=== PATIENT | female | born 1955 | race Caucasian/White ===

== ENCOUNTER → 2017-08-16 | Outpatient (CLI) | payer OTHER | END | disposition home or self-care (01) | LOC: CFH 15:14 → EDSTATUS 15:30 | PROVIDERS: ATTEND Specialist | DX: Z12.31 Encounter for screening mammogram for malignant neoplasm of breast (principal) | CPT/HCPCS: 77063; 77067 ==

== ENCOUNTER 2018-02-09 04:08 | Emergency (ER) | payer OTHER ==
[~2018-02-09] VITALS: Ht 172.7 cm; Wt 95.0 kg
[2018-02-09 06:05] VITALS: BP 158/76
[2018-02-09] MEDS ORDERED: LIDOCAINE-MPF 2% ,5ML ONE (06:13)
[2018-02-09] MEDS ORDERED: LIDOCAINE 2%, 20ML SQ ONE (06:30)
== END 2018-02-09 07:02 | disposition home or self-care (01) ==
LOC: ED 05:42
DX: S83.91XA Sprain of unspecified site of right knee, initial encounter (principal); X58.XXXA Exposure to other specified factors, initial encounter; Y93.89 Activity, other specified; Y92.89 Other specified places as the place of occurrence of the external cause; Y99.8 Other external cause status
CPT/HCPCS: 20610; 99284

== ENCOUNTER 2018-02-09 20:04 | Emergency (ER) | payer OTHER ==
[~2018-02-09] VITALS: Ht 172.7 cm; Wt 96.6 kg
[2018-02-09 20:08] VITALS: BP 164/95
[2018-02-09] MEDS ORDERED: HYDROcodone/APAP 5/325 TABLET PO ONE (21:00)
[2018-02-09] MEDS ORDERED: HYDROcodone/APAP 5/325 TABLET ONE (21:00)
== END 2018-02-09 21:24 | disposition home or self-care (01) ==
LOC: ED 21:16
DX: M70.41 Prepatellar bursitis, right knee (principal); M25.561 Pain in right knee; Y93.89 Activity, other specified
CPT/HCPCS: 99283